=== PATIENT | female | born 1960 | race Two or more races ===

== ENCOUNTER 2024-07-09 21:58 | Inpatient (IN) | payer OTHER ==
[~2024-07-09] VITALS: Ht 154.9 cm; Wt 91.4 kg
[2024-07-09 22:42] LABS: Basophils # (auto) 0.1 10 ^3/uL (0-0.2); Eosinophils # (auto) 0.2 10 ^3/uL (0-0.8); Eosinophils % (auto) 4.1 % (0.0-7.0); Hematocrit 30.3 % (36.0-46.0); Hemoglobin 10.1 g/dL (12.2-16.2); Lymphocytes # (auto) 1.3 10 ^3/uL (0.4-5.4); Mean Corpuscular Hemoglobin 33.3 pg (28.0-32.0); Mean Corpuscular Hgb Conc. 33.4 g/dL (32.0-36.0); Mean Corpuscular Volume 99.5 fL (80.0-100.0); Monocytes # (auto) 0.6 10 ^3/uL (0-1.3); Monocytes % (auto) 11.9 % (0.0-12.0); Neutrophils # (auto) 3.1 10 ^3/uL (1.6-8.6); Nucleated Red Blood Cells % 0.1 %; Platelet Count (auto) 197 10^3/uL (140-450); Red Blood Cells 3.05 10^6/uL (4.0-5.20); Red Cell Distribution Width 15.3 % (11.8-14.3); White Blood Cell 5.2 10^3/uL (4.4-10.8)
[2024-07-09 22:53] LABS: Alanine Aminotransferase 32 U/L (7-40); Albumin 2.2 g/dL (3.2-4.8); Alkaline Phosphatase 192 U/L (46-116); Anion Gap 1 (5-15); Aspartate Aminotransferase 107 U/L (13-40); BUN/Creatinine Ratio 8.6 (10.0-20.0); Blood Urea Nitrogen 7 mg/dL (9-23); Carbon Dioxide 27 mmol/L (20-30); Chloride 104 mmol/L (98-107); Glucose 113 mg/dL (74-106); Potassium 4.1 mmol/L (3.5-5.1); Sodium 132 mmol/L (136-145)
[2024-07-09 22:54] LABS: Bilirubin, Total 1.1 mg/dL (0.2-1.0)
[2024-07-09 23:22] VITALS: PULSE 79; RESP 17; O2SAT 97
[2024-07-10] MEDS: ALBUMIN 5% 500 ML IV ONE ×2 (02:15→06:16)
[2024-07-10] MEDS: FUROSEMIDE 40 MG/4 ML VIAL IV ONE (05:00)
[2024-07-10] MEDS: ALBUMIN 5% 250 ML IV ONE (06:00)
[2024-07-10 07:50] VITALS: PULSE 79; O2SAT 96
[2024-07-10] MEDS ORDERED: ONDANSETRON HCL 4 MG/2 ML VIAL IV PRN (08:30)
[2024-07-10] MEDS ORDERED: HYDROcodone-ACET 5/325MG TAB PO PRN (08:30)
[2024-07-10] MEDS ORDERED: NITROGLYCERIN 0.4 MG SL TAB SL PRN (08:30)
[2024-07-10] MEDS ORDERED: MORPHINE SULFATE INJ 2 MG/ml SYRG IV PRN (08:30)
[2024-07-10] MEDS ORDERED: ACETAMINOPHEN 325 MG TAB PO PRN (08:30)
[2024-07-10] MEDS ORDERED: IBUPROFEN 600 MG TAB PO PRN (08:30)
[2024-07-10 09:20] LABS: Basophils # (auto) 0 10 ^3/uL (0-0.2); Basophils % (auto) 1.1 % (0.0-2.0); Eosinophils # (auto) 0.2 10 ^3/uL (0-0.8); Eosinophils % (auto) 5.1 % (0.0-7.0); Hematocrit 27.8 % (36.0-46.0); Hemoglobin 9.3 g/dL (12.2-16.2); Lymphocytes # (auto) 1.2 10 ^3/uL (0.4-5.4); Lymphocytes % (auto) 34.5 % (10.0-50.0); Mean Corpuscular Hemoglobin 33.3 pg (28.0-32.0); Mean Corpuscular Hgb Conc. 33.3 g/dL (32.0-36.0); Mean Corpuscular Volume 100.1 fL (80.0-100.0); Monocytes # (auto) 0.4 10 ^3/uL (0-1.3); Monocytes % (auto) 12.3 % (0.0-12.0); Neutrophils # (auto) 1.6 10 ^3/uL (1.6-8.6); Nucleated Red Blood Cells % 0.2 %; Platelet Count (auto) 158 10^3/uL (140-450); Red Blood Cells 2.78 10^6/uL (4.0-5.20); Red Cell Distribution Width 15.3 % (11.8-14.3); White Blood Cell 3.4 10^3/uL (4.4-10.8)
[2024-07-10] MEDS: SODIUM CHLORIDE 0.9% 1,000 ML IV SCH (09:30)
[2024-07-10 09:50] LABS: Alanine Aminotransferase 29 U/L (7-40); Albumin 2.7 g/dL (3.2-4.8); Alkaline Phosphatase 153 U/L (46-116); Anion Gap 1 (5-15); Aspartate Aminotransferase 82 U/L (13-40); Calcium 8.3 mg/dL (8.7-10.4); Carbon Dioxide 28 mmol/L (20-30); Chloride 107 mmol/L (98-107); Glucose 81 mg/dL (74-106); Potassium 3.7 mmol/L (3.5-5.1); Sodium 136 mmol/L (136-145)
[2024-07-10 09:51] LABS: Bilirubin, Total 1.6 mg/dL (0.2-1.0); Total Protein 6.8 g/dL (5.7-8.2)
[2024-07-10 09:52] LABS: BUN/Creatinine Ratio 8.8 (10.0-20.0); Blood Urea Nitrogen < 5 mg/dL (9-23)
[2024-07-10] MEDS: SPIRONOLACTONE 25 MG TAB PO SCH (10:00)
[2024-07-10] MEDS: FUROSEMIDE 20 MG/2 ML VIAL IV SCH (10:00)
[2024-07-10] MEDS: PANTOPRAZOLE 40 MG/10 ML VIAL INJ IV SCH (10:26)
[2024-07-10] MEDS: ASPirin 81 mg TAB PO SCH (10:26)
[2024-07-10] MEDS: LACTULOSE 20Gm/30ML SOLN PO SCH (10:26)
[2024-07-10 18:06] VITALS: BP 112/61; PULSE 89; RESP 18; TEMP 98; O2SAT 100
[2024-07-10 18:10] VITALS: BP 112/61; PULSE 89; RESP 18; TEMP 98; O2SAT 100
[2024-07-10] MEDS ORDERED: FURO40TA4 PO (18:44)
[2024-07-10 20:00] VITALS: PULSE 83; PULSE 89; RESP 18
[2024-07-10 21:00] VITALS: BP 119/60; PULSE 89; RESP 18; TEMP 98.2; O2SAT 96
[2024-07-11] VITALS (9 sets, daily range): BP systolic 86–102; BP diastolic 44–56; PULSE 74–88; RESP 15–20; TEMP 97.6–99.2; O2SAT 95–97
[2024-07-11] MEDS ORDERED: LACT10SO3 PO (00:22)
[2024-07-11] MEDS ORDERED: PANT40TA2 PO (00:22)
[2024-07-11] MEDS ORDERED: FURO20TA3 PO (00:22)
[2024-07-11] MEDS ORDERED: ONDA-188 PO (00:22)
[2024-07-11] MEDS ORDERED: SPIR50TA5 PO (00:22)
[2024-07-11] MEDS ORDERED: DABI150C5 PO (00:22)
[2024-07-11] MEDS ORDERED: PANT1INJ3 PO (00:22)
[2024-07-11 07:10] LABS: Basophils # (auto) 0 10 ^3/uL (0-0.2); Basophils % (auto) 1.3 % (0.0-2.0); Eosinophils # (auto) 0.2 10 ^3/uL (0-0.8); Hematocrit 26.4 % (36.0-46.0); Lymphocytes % (auto) 26.3 % (10.0-50.0); Mean Corpuscular Hemoglobin 33.6 pg (28.0-32.0); Mean Corpuscular Hgb Conc. 33.9 g/dL (32.0-36.0); Mean Corpuscular Volume 99.1 fL (80.0-100.0); Monocytes # (auto) 0.4 10 ^3/uL (0-1.3); Monocytes % (auto) 12.3 % (0.0-12.0); Neutrophils % (auto) 54.1 % (37.0-80.0); Platelet Count (auto) 159 10^3/uL (140-450); Red Blood Cells 2.66 10^6/uL (4.0-5.20); Red Cell Distribution Width 15.1 % (11.8-14.3); White Blood Cell 3.6 10^3/uL (4.4-10.8)
[2024-07-11 07:38] LABS: Alanine Aminotransferase 23 U/L (7-40); Albumin 2.4 g/dL (3.2-4.8); Alkaline Phosphatase 133 U/L (46-116); Anion Gap 2 (5-15); Aspartate Aminotransferase 71 U/L (13-40); Bilirubin, Total 1.5 mg/dL (0.2-1.0); Calcium 8.2 mg/dL (8.7-10.4); Carbon Dioxide 27 mmol/L (20-30); Chloride 110 mmol/L (98-107); Glucose 76 mg/dL (74-106); Potassium 3.6 mmol/L (3.5-5.1); Sodium 139 mmol/L (136-145); Total Protein 6.1 g/dL (5.7-8.2)
[2024-07-11 07:39] LABS: BUN/Creatinine Ratio 10.2 (10.0-20.0); Blood Urea Nitrogen < 5 mg/dL (9-23)
[2024-07-11] MEDS ORDERED: DABIGATRAN 75 MG CAP PO ONE (09:15)
[2024-07-11] MEDS: ACETAMINOPHEN 325 MG TAB PO SCH (09:30)
[2024-07-11 09:44] LABS: INR 1.39 (0.9-1.15); Partial Thromboplastin Time 30.3 SEC (24.5-34.5); Prothrombin Time 14.4 sec (9.3-11.8)
[2024-07-11] MEDS: DABIGATRAN 75 MG CAP PO SCH (12:26)
[2024-07-11] MEDS: ACETAMINOPHEN 325 MG TAB PO PRN (23:52)
[2024-07-12] VITALS (8 sets, daily range): BP systolic 100–105; BP diastolic 53–63; PULSE 66–89; RESP 16–18; TEMP 97.6–98.4; O2SAT 93–100
[2024-07-12 06:32] LABS: Basophils # (auto) 0 10 ^3/uL (0-0.2); Basophils % (auto) 1.1 % (0.0-2.0); Eosinophils # (auto) 0.2 10 ^3/uL (0-0.8); Eosinophils % (auto) 5.5 % (0.0-7.0); Hematocrit 27.7 % (36.0-46.0); Hemoglobin 9.3 g/dL (12.2-16.2); Lymphocytes # (auto) 1.1 10 ^3/uL (0.4-5.4); Lymphocytes % (auto) 27.1 % (10.0-50.0); Mean Corpuscular Hemoglobin 33.2 pg (28.0-32.0); Mean Corpuscular Hgb Conc. 33.5 g/dL (32.0-36.0); Mean Corpuscular Volume 99.1 fL (80.0-100.0); Monocytes # (auto) 0.5 10 ^3/uL (0-1.3); Monocytes % (auto) 12.6 % (0.0-12.0); Neutrophils # (auto) 2.1 10 ^3/uL (1.6-8.6); Neutrophils % (auto) 53.7 % (37.0-80.0); Nucleated Red Blood Cells % 0.1 %; Platelet Count (auto) 157 10^3/uL (140-450); Red Blood Cells 2.79 10^6/uL (4.0-5.20); Red Cell Distribution Width 15.4 % (11.8-14.3)
[2024-07-12 06:42] LABS: Alanine Aminotransferase 26 U/L (7-40); Albumin 2.4 g/dL (3.2-4.8); Alkaline Phosphatase 146 U/L (46-116); Anion Gap 6 (5-15); Aspartate Aminotransferase 78 U/L (13-40); Carbon Dioxide 26 mmol/L (20-30); Chloride 107 mmol/L (98-107); Glucose 85 mg/dL (74-106); Potassium 3.6 mmol/L (3.5-5.1); Sodium 139 mmol/L (136-145)
[2024-07-12 06:43] LABS: Bilirubin, Total 1.3 mg/dL (0.2-1.0); Total Protein 6.5 g/dL (5.7-8.2)
[2024-07-12 07:02] LABS: BUN/Creatinine Ratio 9.6 (10.0-20.0); Blood Urea Nitrogen < 5 mg/dL (9-23)
[2024-07-13 01:00] VITALS: BP 111/65; PULSE 103; RESP 18; TEMP 98.6; O2SAT 100
[2024-07-13 05:02] VITALS: BP 106/60; PULSE 91; RESP 18; TEMP 98; O2SAT 95
[2024-07-13 08:00] VITALS: PULSE 64; PULSE 94; RESP 18; O2SAT 97
[2024-07-13 09:00] VITALS: BP 101/59; PULSE 90; RESP 18; TEMP 98.3; O2SAT 97
[2024-07-13] MEDS: SPIRONOLACTONE 25 MG TAB PO SCH (10:04)
[2024-07-13] MEDS: FUROSEMIDE 40 MG TAB PO SCH (10:05)
[2024-07-13 12:09] LABS: Basophils # (auto) 0 10 ^3/uL (0-0.2); Basophils % (auto) 0.5 % (0.0-2.0); Eosinophils # (auto) 0.1 10 ^3/uL (0-0.8); Eosinophils % (auto) 0.9 % (0.0-7.0); Hemoglobin 10.9 g/dL (12.2-16.2); Lymphocytes # (auto) 0.6 10 ^3/uL (0.4-5.4); Lymphocytes % (auto) 8.6 % (10.0-50.0); Mean Corpuscular Hemoglobin 33.2 pg (28.0-32.0); Mean Corpuscular Hgb Conc. 33.1 g/dL (32.0-36.0); Mean Corpuscular Volume 100.3 fL (80.0-100.0); Monocytes # (auto) 0.5 10 ^3/uL (0-1.3); Monocytes % (auto) 7.3 % (0.0-12.0); Neutrophils # (auto) 5.8 10 ^3/uL (1.6-8.6); Neutrophils % (auto) 82.7 % (37.0-80.0); Platelet Count (auto) 193 10^3/uL (140-450); Red Blood Cells 3.29 10^6/uL (4.0-5.20); Red Cell Distribution Width 15.8 % (11.8-14.3); White Blood Cell 7.1 10^3/uL (4.4-10.8)
[2024-07-13 12:17] VITALS: BP 107/69; PULSE 129; RESP 59; TEMP 36.8; O2SAT 97
[2024-07-13 12:25] LABS: Alanine Aminotransferase 34 U/L (7-40); Alkaline Phosphatase 192 U/L (46-116); Anion Gap 5 (5-15); BUN/Creatinine Ratio 9.6 (10.0-20.0); Blood Urea Nitrogen 7 mg/dL (9-23); Calcium 8.7 mg/dL (8.7-10.4); Carbon Dioxide 26 mmol/L (20-30); Chloride 105 mmol/L (98-107); Glucose 140 mg/dL (74-106); Potassium 3.7 mmol/L (3.5-5.1); Sodium 136 mmol/L (136-145)
[2024-07-13 12:26] LABS: Albumin 2.9 g/dL (3.2-4.8); Aspartate Aminotransferase 99 U/L (13-40); Bilirubin, Total 1.4 mg/dL (0.2-1.0); Total Protein 7.9 g/dL (5.7-8.2)
[2024-07-13 12:28] LABS: INR 1.35 (0.9-1.15); Partial Thromboplastin Time 32.8 SEC (24.5-34.5)
[2024-07-13 13:00] VITALS: BP 119/67; PULSE 117; RESP 24; TEMP 97.7; O2SAT 98
== END 2024-07-13 14:30 | disposition home or self-care (01) | DRG 432 ==
LOC: EDBD 21:58 → ER 21:58 → TELE 07-10 08:27 → TELE-WESTW 07-10 17:48
PROVIDERS: ADMIT Internal Medicine; ATTEND Surgery
DX: K74.60 Unspecified cirrhosis of liver (principal); I81 Portal vein thrombosis; K57.20 Diverticulitis of large intestine with perforation and abscess without bleeding; K91.840 Postprocedural hemorrhage of a digestive system organ or structure following a digestive system procedure; J81.1 Chronic pulmonary edema; D64.9 Anemia, unspecified; I10 Essential (primary) hypertension; K80.20 Calculus of gallbladder without cholecystitis without obstruction; K75.81 Nonalcoholic steatohepatitis (NASH); E66.9 Obesity, unspecified; R74.01 Elevation of levels of liver transaminase levels; Y83.8 Other surgical procedures as the cause of abnormal reaction of the patient, or of later complication, without mention of misadventure at the time of the procedure; Y82.8 Other medical devices associated with adverse incidents; M54.9 Dorsalgia, unspecified; Z93.3 Colostomy status; Z80.49 Family history of malignant neoplasm of other genital organs; Z86.718 Personal history of other venous thrombosis and embolism; Z79.01 Long term (current) use of anticoagulants; Z68.38 Body mass index [BMI] 38.0-38.9, adult; Y92.89 Other specified places as the place of occurrence of the external cause
CPT/HCPCS: 36415; 76700; 80053; 83036; 84443; 84484; 85025; 85610; 85730; 86038; 93005; 93306; 96361; 96365; 96375; G0378; J2405; J2470